=== PATIENT | male | born 1995 | race Caucasian/White ===

== ENCOUNTER 2017-03-25 20:27 | Emergency (ER) | payer OTHER ==
[2017-03-25] MEDS ORDERED: ACETAMINOPHEN 325 MG TABLET PO ONE (21:49)
[2017-03-25] MEDS ORDERED: IBUPROFEN 600 MG TABLET PO ONE (21:50)
--- NOTE | 2017-03-25 21:50 | ER Document Report ---
ED Neck/Back Problem - General Mode of Arrival: Ambulatory Information source: Patient TRAVEL OUTSIDE OF THE [place] IN LAST 30 DAYS: No - General Chief Complaint: Back Pain Stated Complaint: BACK PAIN Time Seen by Provider: 03/25/17 21:19 Notes: Patient is a 21-year-old male who presents to the emergency department today with complaints of back pain. Patient states his pain began 2 days ago after playing basketball. Patient states today he bent down and twisted to crack his back and he was "brought to his knees in pain". Patient mentions that he has had throat pain for 2 days with associated nausea. Patient denies any fecal or urinary incontinence, vomiting, diarrhea, or sick contacts. (UVALDO BASSETT) - Related Data Allergies/Adverse Reactions: No Known Allergies Allergy (Unverified 03/25/17 20:32) Past Medical History - General Information source: Patient - Social History Smoking Status: Never Smoker Cigarette use (# per day): No Frequency of alcohol use: None Drug Abuse: None Lives with: Family Family History: Reviewed & Not Pertinent Patient has suicidal ideation: No Patient has homicidal ideation: No - Medical History Medical History: Negative Surgical Hx: Negative Review of Systems - Review of Systems Constitutional: See HPI, Fever - patient reports not knowing he was febrile, stating he believed it was just sunburn EENT: No symptoms reported Cardiovascular: No symptoms reported Respiratory: No symptoms reported Gastrointestinal: No symptoms reported Genitourinary: No symptoms reported Male Genitourinary: No symptoms reported Musculoskeletal: See HPI, Back pain Skin: No symptoms reported Hematologic/Lymphatic: No symptoms reported Neurological/Psychological: No symptoms reported -: Yes All other systems reviewed and negative Physical Exam - Vital signs Vitals: Temp Pulse Resp BP Pulse Ox 101.2 F H 121 H 20 128/63 H 97 03/25/17 20:27 03/25/17 20:27 03/25/17 20:27 03/25/17 20:27 03/25/17 20:27 - Notes Notes: Physical Exam: General: Alert, appears well. HEENT: Normocephalic. Atraumatic. PERRL. Extraocular movements intact. Oropharynx clear. Neck: Supple. Non-tender. Respiratory: No respiratory distress. Clear and equal breath sounds bilaterally. Cardiovascular: Regular rate and rhythm. Abdominal: Normal Inspection. Non-tender. No distension. Normal Bowel Sounds. Back: Mild paraspinal muscular tenderness in the lumbar and thoracic region. No deformity or step off. Extremities: Moves all four extremities. Upper extremities: Normal inspection. Normal ROM. Lower extremities: Normal inspection. No edema. Normal ROM. Neurological: Normal cognition. AAOx4. Normal speech. Psychological: Normal affect. Normal Mood. Skin: Warm. Dry. Normal color. (UVALDO BASSETT) Course - Re-evaluation Re-evalutation: 03/26/17 01:08 [employer] patient states he has been having problems with his back since he was doing running with the on Tuesday. He said it hurt in his lower thoracic spine his lumbar region but then it got better after a day or 2. He said today he went to twist his back to try to crack it and he developed severe pain. On ED arrival he was febrile at 1012 he denied knowing that he had a fever. His pain is along the thoracolumbar spine paralumbar musculoskeletal region. Denies any history of problems with his back or recent procedures. No urinary symptoms flank pain numbness tingling weakness loss of bowel or bladder function he did mention he had a sore throat. No midline tenderness or fluctuance negative bilateral straight leg raise test reflexes are 2 point discrimination capillary refill intact with good perfusion. X-ray of the thoracic and lumbar spine shows L5 anterior listhesis bilateral L5 spondylosis and bilateral foramen stenosis. He had a trace amount of blood in his urine but no urinary tract infection therefore excluding an infectious etiology for the back pain in the form of UTI or pyelonephritis. Did a CT study just to make sure he did not have a kidney stone that was negative except for the back findings. Patient's fever is down he does not have any headache altered mental status nuchal rigidity to suggest meningitis. He has no acute strep infection no otitis media no cough difficulty breathing or upper respiratory infection to determine pneumonia. He has no abdominal pain nausea vomiting or diarrhea. His belly is soft and nonsurgical. At this point I have no etiology for the fever but I do feel the back pain is muscular skeletal nature. Going to discharge him on Tylenol Motrin I do not think he needs any further examination at this point is going [place] 1-2 days and discussed specifically reasons for ED return sooner (DAWIT MERAZ) - Vital Signs Vital signs: Temp Pulse Resp BP Pulse Ox 97.7 F 75 18 120/62 99 03/26/17 03:05 03/26/17 03:05 03/26/17 03:05 03/26/17 03:05 03/26/17 03:05 - Laboratory Laboratory results interpreted by me: 03/25/17 21:55 Urine Blood SMALL H Discharge - Discharge Clinical Impression: Thoracolumbar strain, Acute febrile illness Condition: Stable Disposition: HOME, SELF-CARE Instructions: Muscle Strain ([facility]) Additional Instructions: Muscle Strain You have strained a muscle -- torn the fibers within the muscle. This often occurs with strenuous exertion, or during an injury that suddenly stretches the muscle. The seriousness of a strain varies. Some strains heal within days, others cause problems for months. X-rays cannot show a muscle strain. X-rays are taken only if symptoms suggest that a fracture could be present. The usual treatment of a muscle strain is rest and ice packs. Sometimes, a sling, splint, or crutches may be necessary to rest the muscle. The muscle can be used again once pain subsides. Severe strains require a special exercise and stretching program to prevent permanent stiffness and disability. Your doctor will advise you if this will be necessary. Call the doctor immediately if pain or swelling becomes severe, or if numbness or discoloration develop. Fever Fever is the body's reaction to infection. Fever can also occur with illnesses that create fever-producing substances in the body. By itself, fever is not harmful. It helps the body fight invading germs. We are more concerned with: (1) What's causing the fever? (2) How can we keep you more comfortable until the fever goes away? Early in an illness, symptoms are often so vague that a diagnosis can't be made. If the doctor hasn't identified a clear cause for your fever, you will probably develop new symptoms within the next two days. Contact the doctor if you develop severe worsening headache, rash, chest pain, cough with yellow or green sputum, difficulty breathing, abdominal pain, or other new symptoms. There is no reason to treat a fever if you're comfortable. If the fever is causing aches, headache, and fatigue, you can treat it with ibuprofen (Advil , Nuprin, etc) or acetaminophen (Tylenol). Follow the directions on the bottle. Get plenty of liquids (three quarts per day). Rest. Physical work or sports will raise the temperature higher and make you feel much worse. Dress lightly. If you're chilling, this means the temperature is trying to go higher. Take ibuprofen or acetaminophen. When you feel sweaty and "feverish" the temperature is coming down. If the fever doesn't go away within two days or if you become more ill, call the doctor or return at once for re-examination. [place] return for increasing worsening or new symptoms Prescriptions: Methocarbamol [Robaxin 500 mg Tablet] 500 mg PO BID #12 tablet Forms: Return to Work Scribe Attestation: 03/26/17 01:07 I personally performed the services described in the documentation reviewed the documentation recorded by my scribe in my presence and it accurately and completely records my words and actions (DAWIT MERAZ) Scribe Documentation - Scribe Written by Dain:: Dain Rosario, 03/26/2017 [id number] acting as scribe for :: albina
[2017-03-25 22:16] LABS: APPEARANCE,URINE CLEAR; BILIRUBIN,URINE NEGATIVE (NEGATIVE); GLUCOSE, URINE NEGATIVE (NEGATIVE); KETONES,URINE NEGATIVE (NEGATIVE); LEUKOCYTE ESTERASE,URINE NEGATIVE (NEGATIVE); NITRITE,URINE NEGATIVE (NEGATIVE); PROTEIN,URINE NEGATIVE (NEGATIVE); URINE SPECIFIC GRAVITY 1.012; UROBILINOGEN,URINE NEGATIVE mg/dL (<2.0)
[2017-03-25 22:28] LABS: URINE BARBITURATES SCREEN NEGATIVE; URINE METHADONE SCREEN NEGATIVE; URINE OPIATES LOW NEGATIVE; URINE PHENCYCLIDINE SCREEN NEGATIVE
--- NOTE | 2017-03-25 22:56 | RADIOLOGY REPORT (SQ) ---
EXAM DESCRIPTION: T SPINE AP/LAT COMPLETED DATE/TIME: 03/25/2017 10:48 pm REASON FOR STUDY: injury pain COMPARISON: None. NUMBER OF VIEWS: Two views. TECHNIQUE: AP and lateral radiographic images acquired of the thoracic spine. LIMITATIONS: None. FINDINGS: MINERALIZATION: Normal. ALIGNMENT: Normal. No scoliosis. VERTEBRAE: No fracture or bone lesion. Maintained height, normal segmentation. DISCS: No significant loss of height or significant narrowing. No large osteophytes. HARDWARE: None in the spine. MEDIASTINUM AND SOFT TISSUES: Normal heart size and aortic contour. No soft tissue abnormality. VISUALIZED LUNG ARELLANO: Clear. OTHER: No other significant finding. IMPRESSION: NO SIGNIFICANT RADIOGRAPHIC FINDING IN THE THORACIC SPINE. TECHNICAL DOCUMENTATION: JOB ID: [id number] [employer]- All Rights Reserved
--- NOTE | 2017-03-25 22:57 | RADIOLOGY REPORT (SQ) ---
EXAM DESCRIPTION: L SPINE WHOLE COMPLETED DATE/TIME: 03/25/2017 10:48 pm REASON FOR STUDY: injury pain COMPARISON: None. NUMBER OF VIEWS: Five views including obliques. TECHNIQUE: AP, lateral, oblique, and sacral radiographic images acquired of the lumbar spine. LIMITATIONS: None. FINDINGS: MINERALIZATION: Normal. SEGMENTATION: Normal. No transitional anatomy. ALIGNMENT: Grade 1 spondylolisthesis L5 on S1 with bilateral spondylolysis VERTEBRAE: Maintained height. No fracture or worrisome bone lesion. DISCS: Preserved height. No significant osteophytes or end plate irregularity. POSTERIOR ELEMENTS: Pedicles and facets are intact. No pars defect or posterior arch defects. HARDWARE: None in the spine. PARASPINAL SOFT TISSUES: Normal. PELVIS: Intact as visualized. No fractures or worrisome bone lesions. SI joints intact. OTHER: No other significant finding. IMPRESSION: Grade 1 spondylolisthesis L5 on S1 with bilateral spondylolysis. TECHNICAL DOCUMENTATION: JOB ID: [id number] [employer]- All Rights Reserved
--- NOTE | 2017-03-26 02:22 | RADIOLOGY REPORT (SQ) ---
EXAM DESCRIPTION: CT ABD/PELVIS NO ORAL OR IV COMPLETED DATE/TIME: 03/26/2017 2:00 am REASON FOR STUDY: fever back pain COMPARISON: None. TECHNIQUE: CT scan of the abdomen and pelvis performed without intravenous or oral contrast. Images reviewed with lung, soft tissue, and bone windows. Reconstructed coronal and sagittal MPR images revi ewed. All images stored on PACS. All CT scanners at this facility use dose modulation, iterative reconstruction, and/or weight based d osing when appropriate to reduce radiation dose to as low as reasonably achievable (ALARA). [facility]: Dose Right [facility]: CareDose [facility]: Dose Right [facility]: Teradose 4D [facility]: SyncroPhi Systems RADIATION DOSE: Up-to-date CT equipment and radiation dose reduction techniques were employed. CTDIv ol: 5.6 mGy. DLP: 295 mGy-cm.mGy. LIMITATIONS: No contrast. FINDINGS: LOWER CHEST: No significant findings. No nodules or infiltrates. NON-CONTRASTED LIVER, SPLEEN, ADRENALS: Evaluation limited by lack of IV contrast. No identified sign ificant masses. PANCREAS: No masses. No peripancreatic inflammatory changes. GALLBLADDER: No identified stones by CT criteria. No inflammatory changes to suggest cholecystitis. RIGHT KIDNEY AND URETER: No suspicious masses. Assessment limited by lack of IV contrast. No signif icant calcifications. No hydronephrosis or hydroureter. LEFT KIDNEY AND URETER: No suspicious masses. Assessment limited by lack of IV contrast. No signifi cant calcifications. No hydronephrosis or hydroureter. AORTA AND RETROPERITONEUM: No aneurysm. No retroperitoneal masses or adenopathy. BOWEL AND PERITONEAL CAVITY: No obvious masses or inflammatory changes. No free fluid. APPENDIX: Normal. PELVIS, BLADDER, AND ABDOMINAL WALL:No abnormal masses. No free fluid. Bladder normal. BONES: 0.7 cm grade 1 L5 anterolisthesis, with bilateral L5 spondylolysis, and [id number] bilat eral L5 foraminal stenoses. OTHER: No other significant finding. IMPRESSION: 0.7 cm grade 1 L5 anterolisthesis, with bilateral L5 spondylolysis, and [id number] bilateral L5 foraminal stenoses. Otherwise, NO SIGNIFICANT OR ACUTE PROCESS IN THE ABDOMEN OR PELVI S. TECHNICAL DOCUMENTATION: JOB ID: [id number] Quality ID # [id number]: Final reports with documentation of one or more dose reduction techniques (e.g., Au tomated exposure control, adjustment of the mA and/or kV according to patient size, use of iterative reconstruction technique) 2010 [employer]- All Rights Reserved
[2017-03-26 03:10] VITALS: BP 120/62
== END 2017-03-26 03:09 | disposition home or self-care (01) ==
LOC: ER 20:27
DX: S29.012A Strain of muscle and tendon of back wall of thorax, initial encounter (principal); S39.012A Strain of muscle, fascia and tendon of lower back, initial encounter; R50.9 Fever, unspecified; M54.9 Dorsalgia, unspecified; X58.XXXA Exposure to other specified factors, initial encounter; Y93.67 Activity, basketball
CPT/HCPCS: 72070; 72110; 74176; 80307; 81001; 87070; 87880; 99284